=== PATIENT | female | born 1995 | race Two or more races ===

== ENCOUNTER → 2024-10-23 | Outpatient (CLI) | payer BC, MEDICAID, SELFPAY ==
--- NOTE | 2024-10-23 13:00 | XR_ITS ---
Examination: Transvaginal ultrasound of the pelvis, complete Technique: Transvaginal sonographic images pelvis performed using larson scale imaging Exam date and time: October 23, 2024 1345 hours INDICATIONS: Irregular heavy menses post spontaneous impression March 2024 FINDINGS: Uterus 8.3 cm endometrial stripe 1.5 cm No uterine mass or intrauterine gestation Right ovary 2.8 cm arterial flow 20 mm cyst Left ovary 3.9 cm arterial flow Mild fluid in the cul-de-sac IMPRESSION: No uterine mass or intrauterine gestation.
--- NOTE | 2024-10-23 13:30 | XR_ITS ---
Examination: Pelvic ultrasound, transabdominal, complete Technique: Transabdominal ultrasound of the pelvis performed using grayscale imaging Date and time of exam: October 23, 2024 1335 hours INDICATIONS: Irregular heavy menses post spontaneous March 2024 FINDINGS: Uterus 8.1 cm endometrial stripe 1.4 cm No uterine mass or intrauterine gestation Right ovary 2.9 x 3.2 cm arterial flow 17 mm follicular cyst Left ovary 3.0 x 2.0 cm arterial flow Mild fluid in the cul-de-sac IMPRESSION: No uterine mass or intrauterine gestation
== END | disposition home or self-care (01) ==
LOC: CDIM 13:06
PROVIDERS: PCP Nurse Practitioner; Referring Provider Nurse Practitioner; Visit Provider Nurse Practitioner
DX: N92.0 Excessive and frequent menstruation with regular cycle (principal)
CPT/HCPCS: 76830; 76856